=== PATIENT | female | born 2005 | race Caucasian/White ===

== ENCOUNTER 2025-03-13 13:05 | Outpatient (CLI) | payer OTHER, SELFPAY ==
--- NOTE | 2025-03-13 13:00 | CRLHL7_ITS ---
For Patients: As a result of the Cures Act, medical imaging exams and procedure reports are released immediately into your electronic medical record. You may view this report before your referring provider. If you have questions, please contact your health care provider. LMP: 01/06/2025. STAR by LMP: 10/13/2025. GA: 9w, 3d. INDICATION: Dating and viability. CRL: 2.4 cm, 9w 0d. STAR 10/16/2025. FHR: 188 bpm. GESTATIONAL SAC: 2.5 cm. YOLK SAC: 4.1 mm. RIGHT OVARY: 1.7 x 3.3 x 2.0 cm. LEFT OVARY: 4.1 x 1.9 x 2.9 cm. CL. IMPRESSION: 1. Single living intrauterine measuring 9 weeks 0 days and sonographic due date of 10/16/2025. 2. Subchorionic hemorrhage measuring 2.3 x 0.6 x 0.8 cm. Gaurav Ramos M.D. Diagnostic Radiologist [email or web address] ASHLEY/serge / bM/Dictated by: Gaurav Ramos MD @ 03/13/2025 3:18:00 PM (Electronically Signed)
== END 2025-03-13 13:06 | disposition home or self-care (01) ==
LOC: US 13:05
PROVIDERS: PCP Registered Nurse; Visit Provider Registered Nurse
DX: Z34.91 Encounter for supervision of normal pregnancy, unspecified, first trimester (principal); O20.9 Hemorrhage in early pregnancy, unspecified; Z3A.09 9 weeks gestation of pregnancy
CPT/HCPCS: 76817; 83021; 86592; 86703; 86704; 86706; 86762; 86787; 86803; 86850; 86900; 86901; 87086; 87340; 87491; 87591; 88142